=== PATIENT | female | born 1980 | race Hispanic/Latino ===

== ENCOUNTER 2024-08-27 19:39 | Emergency (ER) | payer SELFPAY ==
[2024-08-27] MEDS ORDERED: Naproxen 500 MG TAB PO SCH (22:45)
[2024-08-27] MEDS ORDERED: carBAMazepine 200 MG TAB PO SCH (22:45)
[2024-08-27] MEDS ORDERED: Terazosin HCl 1 MG CAP PO SCH (22:45)
[2024-08-27] MEDS ORDERED: Naproxen 500 MG TAB ONE (22:54)
== END 2024-08-27 23:05 | disposition home or self-care (01) ==
LOC: ERS 19:39
DX: Z76.0 Encounter for issue of repeat prescription (principal)
CPT/HCPCS: 99281